=== PATIENT | male | born 1965 | race Caucasian/White ===

== ENCOUNTER 2019-12-27 13:40 | Emergency (ER) | payer MEDICAID ==
[~2019-12-27] VITALS: Ht 185.4 cm; Wt 81.0 kg
[2019-12-27] MEDS ORDERED: SODIUM CHLORIDE 0.9% 1,000 ML IV ONE (14:59)
[2019-12-27] MEDS ORDERED: FOLIC ACID 1 MG, THIAMINE HCL 100 MG, MVI, ADULT NO.1 10 ML in DEXTROSE 5% WATER 1,000 ML IV ONE ×4 (15:00)
[2019-12-27 15:23] LABS: HEMATOCRIT. 47.2 % (42.0-52.0); HEMOGLOBIN. 16.6 g/dL (14.0-18.0); MEAN CORPUSCULAR HEMOGLOBIN 33.3 pg (28.0-32.0); MEAN CORPUSCULAR VOLUME 94.7 fL (80.0-94.0); PLATELET 190 x1000/uL (130-400); RED BLOOD CELL COUNT 4.98 mill/uL (4.7-6.1)
[2019-12-27 15:28] LABS: CHLORIDE 105 mEq/L (98-107)
[2019-12-27 15:32] LABS: ETHANOL BLOOD 241 mg/dL
[2019-12-27 17:42] LABS: ATYPICAL LYMPHOCYTES 4; PLATELET ESTIMATE NORMAL
[2019-12-28 00:22] VITALS: BP 110/61
== END 2019-12-28 00:23 | disposition home or self-care (01) ==
LOC: ER 13:40
DX: F10.229 Alcohol dependence with intoxication, unspecified (principal); Y90.8 Blood alcohol level of 240 mg/100 ml or more
CPT/HCPCS: 36415; 70450; 71045; 80053; 80320; 82140; 83605; 85025; 96361; 96365; 99285; J3411; J3490; J7030; J7070; G0480